=== PATIENT | male | born 1950 | race Caucasian/White ===

== ENCOUNTER 2018-04-11 08:11 | Observation (INO) ==
[2018-04-11] MEDS ORDERED: ASPIRIN 325 MG TABLET PO STA (08:44)
[2018-04-11] MEDS ORDERED: ONDANSETRON 4 MG/2 ML VIAL IV PRN ×2 (08:44→10:47)
[2018-04-11] MEDS ORDERED: NITROGLYCERIN 2% OINT 1 INCH/GM PACK TOP STA (08:44)
[2018-04-11] MEDS ORDERED: MORPHINE 4 MG/1 ML VIAL IV PRN (08:44)
[2018-04-11] MEDS ORDERED: ENOXAPARIN 100 MG/ML SYRINGE SUBCUT STA (08:44)
[2018-04-11] MEDS ORDERED: ALUM/MAG/SIMETH/LIDO VISC 1:1 30 ML BOTTLE PO STA (08:44)
[2018-04-11] MEDS ORDERED: ENOXAPARIN 80 MG/0.8 ML SYRINGE SUBCUT ONE (09:03)
[2018-04-11 09:14] LABS: Basophils % 0.6 % (0.0-0.8); Eosinophils # 0.2 10*3/uL (0.0-0.87); Eosinophils % 3.5 % (0.00-10.9); Hematocrit 41.6 VOL% (42.0-52.0); Hemoglobin 14.1 GM/DL (14.0-18.0); Immature Granulocytes % 0.4 %; Immature Granulocytes Absolute 0.02 #; Lymphocytes # 1.4 10*3/uL (1.4-4.0); Lymphocytes % 28.2 % (21.2-54.2); Mean Corpuscular HGB Conc 33.9 GM/DL (32-36); Mean Corpuscular Hemoglobin 29 PG (27-34); Mean Corpuscular Volume 86.3 FL (87-102); Monocytes # 0.4 10*3/uL (0.11-0.8); Monocytes % 8.7 % (1.7-12.7); Neutrophils # 2.8 10*3/uL (1.4-7.4); Neutrophils % 58.6 % (38.7-73.9); Platelet Count 259 T/CUMM (130-400); Red Blood Count 4.82 MC/CUMM (3.8-5.5); Red Cell Distribution Width 15.9 % (9.3-17.3); White Blood Count 4.8 T/CUMM (4-12)
[2018-04-11 09:22] LABS: INR 1.1; PT Patient Result 11.1 SECS; Partial Thromboplastin Time 22.6 SECS (0-40)
[2018-04-11 09:30] LABS: Bilirubin,Total 0.6 MG/DL (0.2-1.0); Calcium 8.8 MG/DL (8.5-10.1); Osmolality,Calculated 282.4 MOS/KG (273-304); Potassium 4.5 MMOL/L (3.5-5.1); Total Protein 6.5 G/DL (6.4-8.3)
[2018-04-11] MEDS ORDERED: PROMETHAZINE 25 MG/1 ML VIAL IM PRN (10:47)
[2018-04-11] MEDS ORDERED: NICOTINE 21 MG/24 HR PATCH TRANSDERM PRN (10:47)
[2018-04-11] MEDS ORDERED: BISACODYL 5 MG TABLET PO PRN (10:47)
[2018-04-11] MEDS ORDERED: traZODone 50 MG TABLET PO PRN (10:47)
[2018-04-11] MEDS ORDERED: NITROGLYCERIN SL 0.4 MG TABLET SL PRN (10:49)
[2018-04-11] MEDS ORDERED: SODIUM CHLORIDE 0.45% 1,000 ML IV SCH ×2 (11:00→14:43)
[2018-04-11 12:00] LABS: INR 1.1; PT Patient Result 11.4 SECS; Partial Thromboplastin Time 27.5 SECS (0-40)
[2018-04-11 12:19] LABS: Thyroid Stimulating Hormone 1.25 uIU/ml (0.358-3.74)
[2018-04-11] MEDS: ENOXAPARIN 40 MG/0.4 ML SYRINGE SUBCUT SCH (12:30)
[2018-04-11] MEDS: PANTOPRAZOLE 40 MG TABLET PO SCH (12:30)
[2018-04-11] MEDS ORDERED: DEXTROSE 50% 25 GM/50 ML VIAL IV PRN (13:55)
[2018-04-11] MEDS ORDERED: GLUCAGON 1 MG VIAL IM PRN (13:55)
[2018-04-11 14:39] LABS: CKMB % 3.8 %
[2018-04-11] MEDS ORDERED: DIAZEPAM 5 MG TABLET PO ONE (14:45)
[2018-04-11] MEDS ORDERED: diphenhydrAMINE CAP 50 MG CAPSULE PO ONE (14:46)
[2018-04-11] MEDS ORDERED: LIDOCAINE 1% 20 ML VIAL ONE ×2 (15:45→15:57)
[2018-04-11] MEDS ORDERED: HEPARIN/NACL 0.9% 2 UNITS/ML 1,000 ML IV ONE (15:45)
[2018-04-11] MEDS ORDERED: NITROGLYCERIN DRIP 50 MG/250 ML BOTTLE IV ONE (15:58)
[2018-04-11] MEDS ORDERED: MIDAZOLAM 2 MG/2 ML VIAL ONE (15:58)
[2018-04-11] MEDS ORDERED: VERAPAMIL 5 MG/2 ML VIAL ONE (15:58)
[2018-04-11] MEDS ORDERED: HYDROmorphone 2 MG/1 ML VIAL ONE (15:58)
[2018-04-11] MEDS: INSULIN LISPRO 100 UNIT/ML SUBCUT SCH ×2 (16:16→20:25)
[2018-04-11] MEDS ORDERED: BIVALIRUDIN 250 MG VIAL IV ONE (16:25)
[2018-04-11] MEDS ORDERED: TICAGRELOR 90 MG TABLET ONE (16:28)
[2018-04-11] MEDS ORDERED: SODIUM CHLORIDE 0.9% 1,000 ML IV SCH (17:00)
[2018-04-11] MEDS: CARVEDILOL 6.25 MG TABLET PO SCH (20:25)
[2018-04-11] MEDS: TICAGRELOR 90 MG TABLET PO SCH (20:25)
[2018-04-11] MEDS ORDERED: ROSUVASTATIN 20 MG TABLET PO SCH (21:00)
[2018-04-12 04:47] LABS: Basophils % 0.3 % (0.0-0.8); Eosinophils # 0.1 10*3/uL (0.0-0.87); Eosinophils % 1.8 % (0.00-10.9); Hematocrit 36.2 VOL% (42.0-52.0); Immature Granulocytes % 0.6 %; Immature Granulocytes Absolute 0.05 #; Lymphocytes % 13.3 % (21.2-54.2); Mean Corpuscular HGB Conc 33.1 GM/DL (32-36); Mean Corpuscular Hemoglobin 29 PG (27-34); Mean Corpuscular Volume 88.5 FL (87-102); Mean Platelet Volume 10.3 FL (9.6-12.0); Monocytes # 0.6 10*3/uL (0.11-0.8); Monocytes % 7.5 % (1.7-12.7); Neutrophils % 76.5 % (38.7-73.9); Platelet Count 217 T/CUMM (130-400); Red Blood Count 4.09 MC/CUMM (3.8-5.5); Red Cell Distribution Width 16.2 % (9.3-17.3); White Blood Count 7.8 T/CUMM (4-12)
[2018-04-12 05:21] LABS: Albumin 3.1 G/DL (3.4-5.0); Bilirubin,Total 0.6 MG/DL (0.2-1.0); Calcium 8.1 MG/DL (8.5-10.1); Potassium 4.1 MMOL/L (3.5-5.1); Risk Ratio 1.83; Total Protein 5.5 G/DL (6.4-8.3); VLDL CHOLESTEROL 10.6 MG/DL
[2018-04-12 05:37] LABS: CKMB % 7.2 %
[2018-04-12] MEDS: INSULIN LISPRO 100 UNIT/ML SUBCUT SCH ×2 (08:41→12:15)
[2018-04-12] MEDS ORDERED: LOSARTAN 25 MG TABLET PO SCH (09:00)
[2018-04-12] MEDS ORDERED: ASPIRIN EC 81 MG TABLET PO SCH (09:00)
[2018-04-12] MEDS ORDERED: ASPIRIN 325 MG TABLET PO SCH (09:00)
[2018-04-12] MEDS: ENOXAPARIN 40 MG/0.4 ML SYRINGE SUBCUT SCH (09:51)
[2018-04-12] MEDS: TICAGRELOR 90 MG TABLET PO SCH (09:52)
[2018-04-12] MEDS: PANTOPRAZOLE 40 MG TABLET PO SCH (09:52)
[2018-04-12] MEDS: CARVEDILOL 6.25 MG TABLET PO SCH (09:52)
[2018-04-12 12:09] VITALS: BP 119/62
== END 2018-04-12 16:10 | disposition home or self-care (01) ==
LOC: N.EDINP 08:11 → N.ED 08:11 → N.2W 11:41 → N.2E 13:44 → N.TELEN 18:19
PROVIDERS: ADMIT Hospitalist; ATTEND Hospitalist